=== PATIENT | male | born 2000 | race Two or more races ===

== ENCOUNTER 2022-07-27 18:45 | Emergency (ER) | payer MEDICAID ==
[~2022-07-27] VITALS: Ht 177.8 cm; Wt 108.9 kg
[2022-07-27 18:56] VITALS: BP 124/72
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
--- NOTE | 2022-07-27 19:17 | NUR ---
X-RAY AT BEDSIDE
[2022-07-27] MEDS ORDERED: IBUPROFEN 600 MG TABLET ONE (19:19)
[2022-07-27] MEDS ORDERED: IBUPROFEN 600 MG TABLET PO ONE (19:30)
[2022-07-27] MEDS ORDERED: CYCL10TA9 PO (20:36)
[2022-07-27] MEDS ORDERED: IBUP-1955 PO (20:36)
== END 2022-07-27 20:47 | disposition home or self-care (01) ==
LOC: ER 18:52
DX: S80.812A Abrasion, left lower leg, initial encounter (principal); Z79.899 Other long term (current) drug therapy; V43.62XA Car passenger injured in collision with other type car in traffic accident, initial encounter; Y93.89 Activity, other specified; Y92.89 Other specified places as the place of occurrence of the external cause; Y99.8 Other external cause status
CPT/HCPCS: 73590-TC